=== PATIENT | female | born 1945 | race Caucasian/White ===

== ENCOUNTER → 2021-04-29 | Outpatient (CLI) | payer MEDICARE ==
--- NOTE | 2021-04-29 13:15 | KCIC ---
EXAM: Chest and left ribs, 4 views. HISTORY: Pain. Fall. COMPARISON: None. FINDINGS: A frontal view of the chest and 3 views left ribs are obtained. There is no infiltrate, ple ural effusion or pneumothorax. The heart is normal in size. There are lateral left sixth and seventh rib fracture deformities, the former which may be acute and the latter of which may be healed. There is a surgical anastomosis within the left upper quadrant. IMPRESSION: 1. Acute appearing lateral right sixth rib fracture and age indeterminant lateral left seventh rib fr acture. Correlate for pain in this location. 2. No acute pulmonary finding. Electronically signed by: Sayda Beavers MD (04/29/2021 1:12 PM) [id number]
== END ==
LOC: KCIC 12:54
PROVIDERS: ATTEND Family Medicine
DX: S20.212A Contusion of left front wall of thorax, initial encounter (principal); R07.9 Chest pain, unspecified; W19.XXXA Unspecified fall, initial encounter; Y93.89 Activity, other specified; Y92.89 Other specified places as the place of occurrence of the external cause; Y99.8 Other external cause status
CPT/HCPCS: 71101